=== PATIENT | female | born 1985 | race Caucasian/White ===

== ENCOUNTER 2016-11-02 00:19 | Emergency (ER) | payer OTHER ==
[2016-11-02 00:34] VITALS: TEMP 98.4
--- NOTE | 2016-11-02 00:36 | EDPHY ---
H & P Stated Complaint: left outer leg pain, sharp, pain to touch HPI/ROS: HPI CHIEF COMPLAINT: Left outer leg pain HISTORY OF PRESENT ILLNESS: This patient 31-year-old female, significant past medical history for lupus, Gurmeet-Danlos syndrome, COPD, asthma, cholecystectomy , presents to the emergency room, with left lateral leg pain. Describes it as sharp stabbing burning. She tells me that she often gets burning pain and is on Lyrica, Cymbalta for this. She is managed by chronic pain. She does not take regular opioids. She states that for the past 2-3 days she has had ongoing left lateral stabbing burning pain that is tender to palpation and light touch. She states she feels like her Gurmeet-Danlos syndrome is causing her fibromyalgia to act up. She denies trauma. Past Medical History: COPD, asthma, Gurmeet-Danlos syndrome, lupus, fibromyalgia Past Surgical History: No recent surgery Social History: Denies daily use of drugs alcohol tobacco products. Family History: Noncontributory ROS REVIEW OF SYSTEMS: A comprehensive 10 point review of systems is otherwise negative aside from elements mentioned in the history of present illness. Exam Constitutional appears nontoxic triage nursing summary reviewed, vital signs reviewed, awake/alert. Vital signs are reviewed. Tachycardic. Tachypneic. Eyes normal conjunctivae and sclera, EOMI, PERRLA. HENT normal inspection, atraumatic, moist mucus membranes, no epistaxis, neck supple/ no meningismus, no raccoon eyes. Respiratory clear to auscultation bilaterally, normal breath sounds, no respiratory distress, no wheezing. Cardiovascular tachycardic, regular rhythm, no murmur, no edema, distal pulses normal. Gastrointestinal soft, non-tender, no rebound, no guarding, normal bowel sounds, no distension, no pulsatile mass. Genitourinary no CVA tenderness. Musculoskeletal left leg: Her left leg is neurovascular intact, warm, good distal pulse. Full range of motion but with light touch the left lateral thigh there is tenderness palpation. Hypersensitivity. no midline vertebral tenderness, full range of motion, no calf swelling, no tenderness of extremities , no meningismus, good pulses, neurovascularly intact. Skin pink, warm, & dry, no rash, skin atraumatic. Neurologic awake, alert and oriented x 3, AAOx3, moves all 4 extremities equally, motor intact, sensory intact, CN II-XII intact, normal cerebellar, normal vision, normal speech. Psychiatric normal mood/affect. Heme/Lymph/Immune no lymphadenopathy. Differential Diagnosis: Includes but is not limited to in a particular order, neuropathy, sciatica, fibromyalgia, lupus Medical Decision Making: Plan for this patient check basic blood work, IV hydration, IV morphine for acute pain control. Re-evaluation. Re-evaluation: 0147AM: Re-evaluation this time. After this patient receive 6 mg IV morphine the patient tells me this did not improve her pain. I have ordered her 30 mg of IV Toradol to see if this helps her. Blood work is reassuring. No signs of infection. She is having neuropathic pain that she thinks is fibromyalgia. 0259AM: Re-evaluation this time this patient received a total a 2nd round of morphine. After Toradol. She is feeling better she is more relaxed. She tells me her pain is much better. She is requesting discharge. I do recommend she follows up with her chronic pain management doctor. She understands return emergency room she develops worsening symptoms questions or concerns. Source: Patient - Personal History LMP (Females 10-55): 8-14 Days Ago Current Tetanus Diphtheria and Acellular Pertussis (TDAP): Yes - Medical/Surgical History Hx Asthma: Yes Hx Chronic Respiratory Disease: Yes Hx Diabetes: No Hx Cardiac Disease: No Hx Renal Disease: No Hx Cirrhosis: No Hx Alcoholism: No Hx HIV/AIDS: No Hx Splenectomy or Spleen Trauma: No Other PMH: cholecystectomy, occasional bowel obstruction without surgery, gurmeet -danlos syndrome, LUPUS, ASTHMA, pneumonia, bronchitis, copd - Social History Smoking Status: Never smoked Constitutional: Initial Vital Signs Temperature (C) 36.9 C 11/02/16 00:32 Heart Rate 127 H 11/02/16 00:32 Respiratory Rate 24 H 11/02/16 00:32 Blood Pressure 119/106 H 11/02/16 00:32 O2 Sat (%) 94 11/02/16 00:32 O2 Delivery Mode Room Air Allergies/Adverse Reactions: cefazolin sodium [From Ancef] Allergy (Verified 01/03/15 15:54) clindamycin Allergy (Verified 07/03/14 18:00) erythromycin base Allergy (Verified 10/19/14 14:52) fentanyl Allergy (Verified 07/03/14 18:02) onion Allergy (Verified 04/22/16 21:16) peach Allergy (Verified 10/19/14 14:53) peas Allergy (Verified 10/19/14 14:53) tree nut [Pecans] Allergy (Verified 10/19/14 14:53) antibiotic starts with A Allergy (Uncoded 07/03/14 18:00) GREEN BEANS Allergy (Uncoded 10/19/14 14:52) most antifugals Allergy (Uncoded 11/02/16 00:26) WALNUTS Allergy (Uncoded 10/19/14 14:53) Home Medications: Medication Instructions Recorded Albuterol [Proventil Inhaler HFA 1 - 2 puffs IH Q4 PRN 10/19/13 (*)] Budesonide/Formoterol 160/4.5 2 puffs IH BID 10/19/13 [Symbicort 160-4.5 Mcg Inh (*)] Calcium Carbonate [[id number]] 500 mg PO Q2D 10/19/13 Cholecalciferol Vit D3 [Vitamin D3 2,000 units PO DAILY 10/19/13 (*)] Cyclobenzaprine [Flexeril 10 MG 10 mg PO TID PRN 10/19/13 (*)] Glucosamine/Chondroitin 1 each PO DAILY 10/19/13 [Glucosamine/Chondroitin (*)] Herbals/Supplements -Info Only 1 ea PO DAILY 10/19/13 Mometasone Furoate Nasal [Nasonex] 1 sprays NASAL HS 10/19/13 Pregabalin [Lyrica 75mg (*)] 75 mg PO DAILY@19 10/19/13 QUEtiapine FUMARATE [Seroquel 100 100 mg PO HS 10/19/13 mg (*)] Duloxetine HCl 07/03/14 traMADOL 07/03/14 Albuterol Sulfate 04/22/16 Potassium 04/22/16 Pulmicort 04/22/16 Amitriptyline HCl 11/02/16 Baclofen 11/02/16 Botox 11/02/16 Lasix 11/02/16 Linzess 11/02/16 Omeprazole 11/02/16 Steroid Injection Hips 11/02/16 Medical Decision Making - Data Points Laboratory Results: Laboratory Results 11/02/16 00:52 11/02/16 00:52 11/02/16 11/02/16 00:52 00:52 WBC 9.63 10^3/uL H 10^3/uL (3.80-9.50) RBC 4.87 10^6/uL 10^6/uL (4.18-5.33) Hgb 13.8 g/dL g/dL (12.6-16.3) Hct 42.7 % % (38.0-47.0) MCV 87.7 fL fL (81.5-99.8) MCH 28.3 pg pg (27.9-34.1) MCHC 32.3 g/dL L g/dL (32.4-36.7) RDW 13.7 % % (11.5-15.2) Plt Count 396 10^3/uL 10^3/uL (150-400) MPV 10.3 fL fL (8.7-11.7) Neut % (Auto) 56.6 % % (39.3-74.2) Lymph % (Auto) 31.7 % % (15.0-45.0) [place] % (Auto) 8.5 % % (4.5-13.0) Eos % (Auto) 2.5 % % (0.6-7.6) Baso % (Auto) 0.5 % % (0.3-1.7) Nucleat RBC Rel Count 0.0 % % (0.0-0.2) Absolute Neuts (auto) 5.45 10^3/uL 10^3/uL (1.70-6.50) Absolute Lymphs (auto) 3.05 10^3/uL H 10^3/uL (1.00-3.00) Absolute Monos (auto) 0.82 10^3/uL H 10^3/uL (0.30-0.80) Absolute Eos (auto) 0.24 10^3/uL 10^3/uL (0.03-0.40) Absolute Basos (auto) 0.05 10^3/uL 10^3/uL (0.02-0.10) Absolute Nucleated RBC 0.00 10^3/uL 10^3/uL (0-0.01) Immature Gran % 0.2 % % (0.0-1.1) Immature Gran # 0.02 10^3/uL 10^3/uL (0.00-0.10) Sodium 144 mEq/L mEq/L (134-144) Potassium 4.2 mEq/L mEq/L (3.5-5.2) Chloride 107 mEq/L mEq/L (97-110) Carbon Dioxide 23 mEq/l mEq/l (22-31) Anion Gap 14 mEq/L mEq/L (8-16) BUN 15 mg/dL mg/dL (7-23) Creatinine 0.8 mg/dL mg/dL (0.6-1.0) Estimated GFR > 60 Glucose 107 mg/dL H mg/dL (70-100) Calcium 10.0 mg/dL mg/dL (8.5-10.4) Medications Given: Discontinued Medications Sodium Chloride (Ns) 1,000 mls @ 0 mls/hr IV ONCE ONE; Wide Open PRN Reason: Protocol Stop: 11/02/16 00:53 Last Admin: 11/02/16 01:02 Dose: 1,000 mls Ketorolac Tromethamine (Toradol) 30 mg IVP EDNOW ONE Stop: 11/02/16 01:47 Last Admin: 11/02/16 01:49 Dose: 30 mg Morphine Sulfate (Morphine) 6 mg IVP EDNOW ONE Stop: 11/02/16 00:53 Last Admin: 11/02/16 01:02 Dose: 6 mg Morphine Sulfate (Morphine) 8 mg IVP EDNOW ONE Stop: 11/02/16 02:18 Last Admin: 11/02/16 02:27 Dose: 8 mg Ondansetron HCl (Zofran) 4 mg IVP EDNOW ONE Stop: 11/02/16 00:53 Last Admin: 11/02/16 01:02 Dose: 4 mg Departure - Departure Disposition: Home, Routine, Self-Care Clinical Impression: Leg pain Qualifiers: Laterality: left Qualified Code(s): M79.605 - Pain in left leg Condition: Fair Instructions: Leg Pain (ED) Additional Instructions: 1. You did receive IV morphine here in the emergency room as well as IV Toradol. This was for acute pain control. 2. Please follow up with her pain management doctor. 3. Please return to the emergency room if he develops any worsening symptoms questions or concerns. Referrals: Mary Crowder MD [Primary Care Provider] - As per Instructions
[2016-11-02] MEDS ORDERED: ONDANSETRON 4 MG/2 ML VIAL IVP ONE (00:52)
[2016-11-02] MEDS ORDERED: NS 1,000 ML IV ONE (00:52)
[2016-11-02 01:16] LABS: % IMMATURE GRANULYOCYTES 0.2 % (0.0-1.1); ABSOLUTE IMMATURE GRANULOCYTES 0.02 10^3/uL (0.00-0.10); ADD DIFF? NO; ADD MORPH? NO; ADD SCAN? NO; ATYPICAL LYMPHOCYTE FLAG 10 (0-99); FRAGMENT RBC FLAG 0 (0-99); HEMATOCRIT 42.7 % (38.0-47.0); HEMOGLOBIN 13.8 g/dL (12.6-16.3); LEFT SHIFT FLG 0 (0-99); LIPEMIA HEMOLYSIS FLAG 80 (0-99); MEAN CELL HEMOGLOBIN 28.3 pg (27.9-34.1); MEAN CELL HEMOGLOBIN CONCENTR. 32.3 g/dL (32.4-36.7); MEAN CELL VOLUME 87.7 fL (81.5-99.8); MEAN PLATELET VOLUME 10.3 fL (8.7-11.7); PLATELET CLUMPS FLAG 0 (0-99); PLATELET COUNT 396 10^3/uL (150-400); RED BLOOD CELL COUNT 4.87 10^6/uL (4.18-5.33); RED CELL DISTRIBUTION WIDTH 13.7 % (11.5-15.2)
[2016-11-02 01:22] LABS: ANION GAP 14 mEq/L (8-16); CARBON DIOXIDE 23 mEq/l (22-31); CHLORIDE 107 mEq/L (97-110); CREATININE 0.8 mg/dL (0.6-1.0); GLOMERULAR FILTRATION RATE > 60; GLUCOSE 107 mg/dL (70-100); POTASSIUM 4.2 mEq/L (3.5-5.2); SODIUM 144 mEq/L (134-144)
[2016-11-02] MEDS ORDERED: KETOROLAC 30 MG/1 ML SDV ONE (01:46)
[2016-11-02] MEDS ORDERED: KETOROLAC 30 MG/1 ML SDV IVP ONE (01:46)
[2016-11-02 04:02] VITALS: BP 102/71; PULSE 99; RESP 16; O2SAT 94
== END 2016-11-02 04:03 | disposition home or self-care (01) ==
DX: M79.605 Pain in left leg (principal); J44.9 Chronic obstructive pulmonary disease, unspecified; E86.9 Volume depletion, unspecified
CPT/HCPCS: 96374; J1885; J2405

== ENCOUNTER → 2018-07-13 | Outpatient (CLI) | payer OTHER | LOC: FIMAGING 11:37 | PROVIDERS: ATTEND Family Medicine | DX: M25.511 Pain in right shoulder (principal); E24.9 Cushing's syndrome, unspecified ==